=== PATIENT | male | born 1945 | race Caucasian/White ===

== ENCOUNTER 2016-04-19 05:38 | Day surgery (SDC) | payer MEDICARE, BC ==
[2016-04-19] VITALS (9 sets, daily range): BP systolic 109–129; BP diastolic 63–90; PULSE 56–85; TEMP 97.3–97.4
[~2016-04-19] VITALS: Ht 177.8 cm; Wt 89.6 kg
[2016-04-19] MEDS ORDERED: PROZAC 20MG20 MG PO (06:29)
[2016-04-19] MEDS ORDERED: KLONOPIN 0.5MG0.5 MG PO (06:29)
[2016-04-19] MEDS ORDERED: FLOMAX 0.40.4 MG/CAP PO (06:30)
[2016-04-19] MEDS ORDERED: PRILOSEC 20MG20 MG PO (06:30)
[2016-04-19] MEDS ORDERED: MAGNESIUM ELEM300 MG PO (06:32)
[2016-04-19] MEDS ORDERED: K-DUR 10 MEQ T10 MEQ PO (06:34)
[2016-04-19] MEDS ORDERED: FLONASEALLERGY NS (06:35)
[2016-04-19] MEDS ORDERED: VITAMIN E1000 U/CAP PO (06:36)
[2016-04-19] MEDS ORDERED: MASON NATURAL1200 MG PO (06:37)
[2016-04-19] MEDS ORDERED: ESTER C PO (06:38)
[2016-04-19] MEDS ORDERED: PHARMASSURE ZIN50 MG PO (06:42)
[2016-04-19] MEDS ORDERED: [UNRECOGNIZED DRUG - OTHER] PO (06:42)
[2016-04-19] MEDS ORDERED: VITAMIN D32000 I1 PO (06:44)
[2016-04-19] MEDS ORDERED: MILK THISTLE E140 M1 PO (06:45)
[2016-04-19] MEDS ORDERED: NIACIN FLUSH F400 MG (06:46)
[2016-04-19] MEDS ORDERED: FOLATE PO (06:46)
== END 2016-04-19 16:55 | disposition home or self-care (01) ==
LOC: SDCO 05:38
DX: N20.1 Calculus of ureter (principal); Z87.442 Personal history of urinary calculi
CPT/HCPCS: A4315; C1769; J0690; J1100; J1170; J1940; J2270; J2405; J2704; J3010; J7120; Q9967

== ENCOUNTER 2019-08-12 14:28 | Observation (INO) | payer MEDICARE, BC ==
[2019-08-12] VITALS (10 sets, daily range): BP systolic 119–148; BP diastolic 62–96; PULSE 50–66; TEMP 97.7–98.5
[~2019-08-12] VITALS: Ht 177.8 cm; Wt 90.9 kg
[~2019-08-12 14:28] MED LIST: ESTER C PO; FLOMAX 0.40.4 MG/CAP PO; FLONASEALLERGY NS; FOLATE PO; K-DUR 10 MEQ T10 MEQ PO; KLONOPIN 0.5MG0.5 MG PO; MAGNESIUM ELEM300 MG PO; MASON NATURAL1200 MG PO; MILK THISTLE E140 M1 PO; NIACIN FLUSH F400 MG; PHARMASSURE ZIN50 MG PO; PRILOSEC 20MG20 MG PO; PROZAC 20MG20 MG PO; VITAMIN D32000 I1 PO; VITAMIN E1000 U/CAP PO; [UNRECOGNIZED DRUG - OTHER] PO
[2019-08-12] MEDS ORDERED: CALCIUM CITRAT200 M2 PO (15:56)
[2019-08-12] MEDS ORDERED: MAG-OX 400400 MG/TAB PO (16:00)
[2019-08-12] MEDS ORDERED: ZYRTEC 10MG10 MG PO (16:06)
[2019-08-12] MEDS ORDERED: ASPIRIN 81M81 MG/TA2 PO (16:07)
[2019-08-12] MEDS ORDERED: XANAX .25M0.25 MG/TA PO (16:08)
[2019-08-12] MEDS ORDERED: MELATONIN5 M1 PO (16:10)
[2019-08-12] MEDS ORDERED: TYLENOL 500MG500 MG PO (16:11)
--- NOTE | 2019-08-12 19:35 | NUR ---
Report received, assumed care for store warehouse associate. Assessment complete. VS stable. A&Ox3. Denies pain/shortness of breath/nausea. IV to left forearm with LR@100ml/hr-infusing without difficulty. Plan of care discussed for this shift to include pain control, advancing diet, increasing fluid intake and straining urine. Instructed to call for questions/concerns. Verbalizes understanding. Call light in reach. Will monitor.
--- NOTE | 2019-08-13 03:21 | NUR ---
Has rested off and on this shift. Denies shortness of breath/nausea. C/O pain only with voiding but denies need for intervention. States he was worried about the car ride home as they have an hour drive and is glad he was able to stay. Denies current needs. Urine has been strained with no results noted. Call light in reach. Will monitor.
[2019-08-13 03:39] VITALS: BP 116/62; PULSE 52; TEMP 97.5
--- NOTE | 2019-08-13 06:40 | NUR ---
awake and talking on phone, bedside shift report received from EUSEBIO Jon
--- NOTE | 2019-08-13 07:34 | NUR ---
full assessment comopleted, see interventions for further info, denies pain or needs
[2019-08-13 07:54] VITALS: BP 115/70; PULSE 71; TEMP 97.8
--- NOTE | 2019-08-13 09:00 | NUR ---
discharge instructions given to patient, verbalizes understanding
--- NOTE | 2019-08-13 09:17 | NUR ---
discharged ambulatory
== END 2019-08-13 09:17 | disposition home or self-care (01) ==
LOC: SDCO 14:28 → SURG 19:14 → SDCO 08-13 04:16 → SURG 08-13 04:16
PROVIDERS: ADMIT Urology
DX: N20.2 Calculus of kidney with calculus of ureter (principal); K21.9 Gastro-esophageal reflux disease without esophagitis; F41.9 Anxiety disorder, unspecified; F32.9 Major depressive disorder, single episode, unspecified; Z79.899 Other long term (current) drug therapy; Z80.9 Family history of malignant neoplasm, unspecified; Z82.49 Family history of ischemic heart disease and other diseases of the circulatory system
CPT/HCPCS: OP; C1769; C2617; J1100; J2405; J2704; J3010; J7120; Q9967

== ENCOUNTER 2019-09-24 05:16 | Day surgery (SDC) | payer MEDICARE, BC ==
[~2019-09-24] VITALS: Ht 177.8 cm; Wt 88.6 kg
[2019-09-24] VITALS (7 sets, daily range): BP systolic 115–136; BP diastolic 53–78; PULSE 56–74; TEMP 97.5–98.5
[~2019-09-24 05:16] MED LIST changes: +ASPIRIN 81M81 MG/TA2 PO; +CALCIUM CITRAT200 M2 PO; +MAG-OX 400400 MG/TAB PO; +MELATONIN5 M1 PO; +TYLENOL 500MG500 MG PO; +XANAX .25M0.25 MG/TA PO; +ZYRTEC 10MG10 MG PO
--- NOTE | 2019-09-24 13:56 | NUR ---
PT RETURNED FROM PACU TO BAY #7 PER CART. PT ALERT NAME AND PLACE, SLEEPY. PT DENIES PAIN, STATES' SOME DISCOMFORT'. O2 AT 2L PER NC LUNGS CLEAR, HRR, BOWEL SOUNDS PRESENT. PT VOIDED 200CC OF LIGHT PINK/YELLOW URINE. PT TOLERATING APPLE SAUCE AND WATER. DENIES NAUSEA. WILL CONT TO MONITOR.
--- NOTE | 2019-09-24 14:01 | NUR ---
PT STATES, SOME DISCOMFORT AND PRESSURE, BUT 'TOLERABLE'. DENIES NAUSEA AND REQUESTS MORE WATER, SALTINES AND JELLO. O2 @ 1L PER NC. DENIES SHORTNESS OF BREATH. WILL CONT TO MONITOR PROGRESS.
--- NOTE | 2019-09-24 14:05 | NUR ---
PT TOLERATING FOOD AND FLUIDS. VOIDED 325CC OF LIGHT PINK/YELLOW URINE. PT STATES, 'THERE WERE SOME PIECES IN THAT URINE', 'NOT DIFFICULT TO PASS THOUGH'. O2 AT 1L PER NC, SATS AT 95%. DENIES FURTHER NEED AT THIS TIME. DID REQUEST A WATER REFILL.
--- NOTE | 2019-09-24 14:10 | NUR ---
PT UP TO THE BATHROOM X1 ASSIST. PT STATES FEELING' ALITTLE UNSTEADY' WHILE AMBULATING. VOIDING WITHOUT DIFFICULTY LIGHT YELLOW/PINK URINE. O2 ON ROOMAIR AND PT RUNNING 98%. PT STATES FEELING ALITTLE MORE PAIN. RATES PAIN AT A 5 ON A 0-10 SCALE. PT GIVEN NORCO PER PRN ORDERS. WILL CONT TO MONITOR PROGRESS.
--- NOTE | 2019-09-24 14:15 | NUR ---
PT PAIN ALITTLE BETTER. DC'D #20 PER RIGHT HAND WITHOUT DIFFICULTY. VSS. DENIES NAUSEA.
--- NOTE | 2019-09-24 14:17 | NUR ---
PT A/Ox3. PT DENIES PAIN OR DISCOMFORT AT THIS TIME. TOLERATING FLUIDS AND FOOD WITHOUT DIFFICULTY. PASSING URINE WITHOUT DIFFICUTLY. AMBULATES WITHOUT DIFFICULTY. VSS. PT DISCHARGE PAPERS SIGNED PT DISCHARGED PER TO [facility].
== END 2019-09-24 11:10 | disposition home or self-care (01) ==
LOC: SDCO 05:16
DX: N20.0 Calculus of kidney (principal); K21.9 Gastro-esophageal reflux disease without esophagitis; R00.1 Bradycardia, unspecified; I25.10 Atherosclerotic heart disease of native coronary artery without angina pectoris; Z95.5 Presence of coronary angioplasty implant and graft; F41.9 Anxiety disorder, unspecified; F32.9 Major depressive disorder, single episode, unspecified; F43.10 Post-traumatic stress disorder, unspecified; Z79.899 Other long term (current) drug therapy
CPT/HCPCS: C1769; C2617; J0690; J1100; J1940; J2405; J2704; J3010; J7120

== ENCOUNTER 2021-09-23 08:35 | Observation (INO) | payer MEDICARE, BC ==
[2021-09-23] VITALS (7 sets, daily range): BP systolic 108–130; BP diastolic 69–97; PULSE 42–75; TEMP 97.6–97.9
[2021-09-23] MEDS ORDERED: GARLIC100 MG PO (10:52)
[2021-09-23] MEDS ORDERED: GOOD SENSE SLEE25 M1 PO (10:53)
[2021-09-23] MEDS ORDERED: LIPITOR 40MG TA40 MG PO (10:53)
[2021-09-23] MEDS ORDERED: LOZOL 2.5M2.5 MG/TAB PO (10:55)
[2021-09-23] MEDS ORDERED: ASPIRIN 81M81 MG/TA2 PO (10:55)
[2021-09-23] MEDS ORDERED: B COMPLEX #11 TA1 PO (10:56)
--- NOTE | 2021-09-23 11:15 | NUR ---
Patient sitting up in the recliner, at the bedside. A&Ox4. IV from prior facility. Denies pain and discomfort. Independent in the room. Nurse oriented the patient to location, room and call light. No further needs expressed. Call light within reach
--- NOTE | 2021-09-23 11:25 | NUR ---
Patient taken by bed to a procedure
[2021-09-23] MEDS ORDERED: ULTRAM 50MG TAB50 MG PO (12:00)
--- NOTE | 2021-09-23 12:45 | NUR ---
Patient to room 319 from a procedure. A&Ox4. VSS, IV CDI. Denies pain and discomfort. at the bedside. Post op VS monitoring. Call light within reach. Bed alarm on
--- NOTE | 2021-09-23 16:42 | NUR ---
Discharge paperwork reviewed with the patient and . Patient verbalized an understanding to follow doctors orders. IV removed, tip intact. No further needs expressed. Patient taken by wheelchair to the ED entrance to awaiting vehicle.
== END 2021-09-23 16:42 | disposition home or self-care (01) ==
LOC: MEDICAL 10:01
PROVIDERS: ADMIT Urology
DX: N20.1 Calculus of ureter (principal); Z79.82 Long term (current) use of aspirin; K21.9 Gastro-esophageal reflux disease without esophagitis; Z95.5 Presence of coronary angioplasty implant and graft
CPT/HCPCS: C1769; C2617; J0690; J1100; J2405; J2704; J3010; J7120; Q9967

== ENCOUNTER 2021-11-20 16:46 | Emergency (ER) | payer MEDICARE, BC ==
[~2021-11-20] VITALS: Ht 177.8 cm; Wt 84.1 kg
[~2021-11-20 16:46] MED LIST changes: +B COMPLEX #11 TA1 PO; +GARLIC100 MG PO; +GOOD SENSE SLEE25 M1 PO; +LIPITOR 40MG TA40 MG PO; +LOZOL 2.5M2.5 MG/TAB PO; +ULTRAM 50MG TAB50 MG PO
[2021-11-20 17:29] VITALS: TEMP 97.5
[2021-11-20 18:54] LABS: COLLECTION METHOD CLEAN CATCH
[2021-11-20 18:56] LABS: URINE APPEARANCE Clear (CLEAR/HAZY); URINE COLOR Yellow (YELLOW)
[2021-11-20 18:57] LABS: PH 7.5 (5.0-8.5); URINE BLOOD 2+ (NEGATIVE); URINE GLUCOSE Negative (NEGATIVE); URINE KETONE Negative (NEGATIVE); URINE NITRATE Negative (NEGATIVE); URINE PROTEIN(semi-quant) Negative (NEGATIVE); URINE UROBILINOGEN 0.2 E.U/dL (0.2-1.0)
[2021-11-20 19:18] LABS: BASO # 0.1 K/mm3 (0.0-0.2); BASO % 0.4 % (0.0-2.0); EOS # 0.4 K/mm3 (0.0-0.7); EOS % 3.2 % (0.0-4.0); GRAN # 8.9 K/mm3 (1.4-6.5); GRAN % 76.4 % (42.2-75.2); HEMATOCRIT 44.8 % (42.0-52.0); HEMOGLOBIN 15.7 g/dl (13.5-18.0); LYMPH # 1.4 K/mm3 (1.2-3.4); LYMPH % 11.7 % (20.0-51.0); MEAN CELL VOLUME 85 fl (80.0-100.0); MEAN CORPUSCULAR HEMOGLOBIN 30 pg (27-31); MEAN CORPUSCULAR HGB CONC 35 g/dl (33.0-37.0); MEAN PLATELET VOLUME 10.1 fl (7.4-10.4); MONO # 0.9 K/mm3 (0.1-0.6); PLATELET COUNT 319 K/mm3 (130-400); RED BLOOD COUNT 5.28 M/mm3 (4.20-5.60); REDCELL DISTRIBUTION WIDTH-CV 12.7 % (11.5-14.5)
[2021-11-20 19:34] LABS: ALBUMIN 4.1 gm/dL (3.4-4.8); BILIRUBIN,TOTAL 0.5 mg/dL (0.2-1.2); C-REACTIVE PROTEIN 0.19 mg/dL (0.00-0.50); CALCIUM 9.8 mg/dL (8.4-10.2); CREATININE, serum 1.32 mg/dL (0.72-1.25); POTASSIUM 3.9 mmol/L (3.5-4.5)
[2021-11-20 20:07] LABS: MUCOUS Present (NOT PRESENT); SQUAMOUS EPITHELIAL None Seen /hpf (0-10); URINE BACTERIA None Seen /hpf (NONE SEEN); URINE RBC 20-50 /hpf (0-2)
[2021-11-20] MEDS ORDERED: ULTRAM 50MG TAB50 MG PO (22:27)
[2021-11-20 22:52] VITALS: BP 129/89; PULSE 57
== END 2021-11-20 22:55 | disposition home or self-care (01) ==
LOC: COL.ER 16:46
PROVIDERS: Emergency Medicine; Nurse Practitioner Primary Care
DX: N13.2 Hydronephrosis with renal and ureteral calculous obstruction (principal)
CPT/HCPCS: J1885; J2405; J3010; J7030; Q9967